=== PATIENT | male | born 1960 | race Caucasian/White ===

== ENCOUNTER 2020-09-15 06:00 | Observation (INO) | payer BC ==
[2020-09-13 13:09] LABS: BASOPHILS % (AUTO) 0.5 % (0.0-5.0); EOSINOPHILS % (AUTO) 0.9 % (0.0-8.0); HEMATOCRIT 51.5 % (42-54); LYMPHOCYTES % (AUTO) 14.5 % (21.0-51.0); MEAN CORPUSCULAR HEMOGLOBIN 30.1 pg (27.0-33.0); MEAN CORPUSCULAR HGB CONC 33.6 g/dL (32.0-36.0); MEAN CORPUSCULAR VOLUME 89.6 fL (79-99); MONOCYTES % (AUTO) 10.6 % (3.0-13.0); NEUTROPHILS % (AUTO) 73.3 % (40.0-77.0); PLATELET COUNT (AUTO) 226 K/uL (130-400); RED BLOOD CELL COUNT(AUTO) 5.75 MIL/uL (4.50-6.20); WHITE BLOOD COUNT (AUTO) 5.6 K/uL (4.8-10.8)
[2020-09-13 13:16] LABS: BILIRUBIN,URINE Negative (NEGATIVE); GLUCOSE, URINE (UA) Negative (NEGATIVE); KETONES,URINE Negative (NEGATIVE); LEUKOCYTE ESTERASE ,URINE Negative (NEGATIVE); NITRATE,URINE Negative (NEGATIVE); OCCULT BLOOD,URINE Negative (NEGATIVE); PH,URINE 7.5 (5.0-8.0); PROTEIN,URINE Negative (NEGATIVE); UROBILINOGEN,URINE 0.2 mg/dL (0.2-1.0)
[2020-09-13 13:22] LABS: APPEARANCE,URINE CLEAR (CLEAR); COLOR,URINE YELLOW (YELLOW)
[2020-09-13 13:28] LABS: INR 1.09 (0.85-1.15); PARTIAL THROMBOPLASTIN TIME 29.5 SEC (26.3-35.5); PROTHROMBIN TIME 11.7 SEC (9.6-11.6)
[2020-09-13 13:32] LABS: POTASSIUM 4.7 mmol/L (3.5-5.1)
[~2020-09-15] VITALS: Ht 198.1 cm; Wt 99.8 kg
[2020-09-15] VITALS (14 sets, daily range): BP systolic 120–141; BP diastolic 77–90
[~2020-09-15 06:00] MED LIST: ACETAMINOPHEN 325 MG TAB PO PRN; ASPI-891 PO; BUPR-317 PO; FLUO20CA35 PO; ROSU20TA31 PO; SODIUM CHLORIDE 0.9% 500ML 500 ML IV SCH
[2020-09-15] MEDS ORDERED: SODIUM CHLORIDE 0.9% 1000ML 1,000 ML IV ONE (06:12)
--- NOTE | 2020-09-15 06:15 | NUR ---
PREOP PT ARRIVED AMBULATORY IN NO DISTRESS. PT ORIENTED TO ROOM AND CALL LIGHT. FRIEND WITH PT. PT CONNECTED TO DOCTOR OF OPTOMETRY. WILL CONTINUE TO MONITOR PT
[2020-09-15] MEDS ORDERED: HEPARIN SODIUM 1000UNIT/ML 10ML VIAL ONE ×2 (07:12→08:48)
[2020-09-15] MEDS ORDERED: NITROGLYCERIN 2 MG/VIAL VIAL IV ONE (07:12)
[2020-09-15] MEDS ORDERED: SODIUM BICARB 50MEQ 50ML VIAL 50 ML ONE (07:12)
[2020-09-15] MEDS ORDERED: LIDOCAINE HCL 2% 20ML ONE (07:13)
[2020-09-15] MEDS ORDERED: IOHEXOL-350 75 ML VIAL IV ONE ×2 (07:13→08:35)
[2020-09-15] MEDS ORDERED: MEPERIDINE-PF 25 MG/ML SYG ONE ×3 (07:13→08:54)
[2020-09-15] MEDS ORDERED: MIDAZOLAM HCL 1 MG/ML 2ML VIAL ONE ×3 (07:13→08:54)
[2020-09-15] MEDS ORDERED: ONDANSETRON HCL 4 MG/2 ML VIAL ONE (07:34)
[2020-09-15] MEDS ORDERED: CLOPIDOGREL BISULFATE 300 MG TAB ONE (09:14)
[2020-09-15] MEDS ORDERED: ASPIRIN 325MG EC TAB 325 MG TABLET.DR PO ONE (09:14)
[2020-09-15] MEDS ORDERED: ONDANSETRON HCL 4 MG/2 ML VIAL IVP PRN (09:30)
[2020-09-15] MEDS ORDERED: ACETAMINOPHEN-CODEINE 300/30MG TAB PO PRN ×2 (09:30)
[2020-09-15] MEDS: SODIUM CHLORIDE 0.9% 1000ML 1,000 ML IV SCH ×2 (09:30→20:38)
[2020-09-15] MEDS ORDERED: TEMAZEPAM 30 MG CAP PO PRN (09:30)
--- NOTE | 2020-09-15 09:55 | NUR ---
md dr stokes in to speak to friend.
--- NOTE | 2020-09-15 10:00 | NUR ---
post cath received pt and report post cath from lyndon adams rn. pt in supine position in no distress. will continue to monitor pt.
--- NOTE | 2020-09-15 10:09 | NUR ---
[facility] pt taken to [facility] via bed in no distress by lyndon adams rn Addendum: 09/15/20 at 1011 by OLIVIA MUNSON RN RN wrong patient
--- NOTE | 2020-09-15 10:50 | NUR ---
hospitalist dr almeida notified of admission.
--- NOTE | 2020-09-15 11:30 | NUR ---
hospitalist nurse practitioner came in to see pt. she will renew home medications
--- NOTE | 2020-09-15 14:54 | NUR ---
report report given to shilpa nagy rn for continuation of care
--- NOTE | 2020-09-15 16:50 | NUR ---
DR DONALD ROUNDS AT BEDSIDE. HAND OFF REPORT GIVEN TO JESSEE ROSEN. PENDING TRANSFER TO ROOM 409
--- NOTE | 2020-09-15 17:30 | NUR ---
TRANSFERRED TO ROOM 409. CARE ASSUMED BY ZOIE ROSEN. PT STABLE IN NO DISTRESS
--- NOTE | 2020-09-15 18:37 | NUR ---
TRANSFERRED PT ARRIVE. AAO X3 NO COMPLICATIONS, NO BLEEDING FROM SITE OF PROCEDURE. COOPERAGES, WAS GIVEN ORIENTATION AND EDUCATED ABOUT THE UNIT. VERBALIZED UNDERSTAND. CONECTED TO NS @ 100 ML/HR.
[2020-09-15] MEDS ORDERED: ATORVASTATIN CALCIUM 40 MG TABLET PO SCH (21:00)
[2020-09-16 03:39] VITALS: BP 134/86
[2020-09-16] MEDS: SODIUM CHLORIDE 0.9% 1000ML 1,000 ML IV SCH (05:30)
[2020-09-16 06:09] LABS: HEMATOCRIT 49.4 % (42-54); MEAN CORPUSCULAR HEMOGLOBIN 30.4 pg (27.0-33.0); MEAN CORPUSCULAR HGB CONC 33.6 g/dL (32.0-36.0); MEAN CORPUSCULAR VOLUME 90.5 fL (79-99); RED BLOOD CELL COUNT(AUTO) 5.46 MIL/uL (4.50-6.20); WHITE BLOOD COUNT (AUTO) 6.5 K/uL (4.8-10.8)
[2020-09-16 06:27] LABS: POTASSIUM 4.5 mmol/L (3.5-5.1)
[2020-09-16] MEDS ORDERED: ASPIRIN 81MG TAB.CHEW PO SCH (09:00)
[2020-09-16] MEDS ORDERED: FLUOXETINE HCL 20 MG CAPSULE PO SCH (09:00)
[2020-09-16] MEDS ORDERED: BUPROPION HCL 150 MG TABLET.SA PO SCH (09:00)
[2020-09-16] MEDS ORDERED: CLOPIDOGREL BISULFATE 75 MG TAB PO SCH (09:00)
--- NOTE | 2020-09-16 15:36 | NUR ---
AFTER EVALUATION PER CARDIOLOGY STAND POINT PT IS CLEAR.
[2020-09-16] MEDS ORDERED: CLOP75TA14 PO (16:35)
[2020-09-16] MEDS ORDERED: ASPI-1005 PO (16:35)
== END 2020-09-16 17:00 | disposition home or self-care (01) ==
LOC: DAH 06:00 → DAHIP 06:01 → DAH 06:01 → 4BH 17:30
PROVIDERS: ADMIT Internal Medicine; ATTEND Internal Medicine
DX: I25.10 Atherosclerotic heart disease of native coronary artery without angina pectoris (principal); E78.00 Pure hypercholesterolemia, unspecified; F32.9 Major depressive disorder, single episode, unspecified; Z90.89 Acquired absence of other organs; E78.5 Hyperlipidemia, unspecified; E87.70 Fluid overload, unspecified; F42.9 Obsessive-compulsive disorder, unspecified
CPT/HCPCS: 36415 ×2; 71045; 80048 ×2; 81003; 85025; 85027; 85610; 85730; 93005; 93458; 96360; 96361 ×2; A4215; A4216; A4221; A4222; A4223 ×3; A4606; A4663; C1725 ×3; C1760; C1769 ×3; C1874; C1887 ×3; C1894; C9600; G0378 ×19; J1644 ×3; J2175 ×3; J2250 ×3; J2405; J3490 ×3; J7030 ×3; Q9967 ×2; 99156; 99157

== ENCOUNTER → 2023-09-30 | Outpatient (CLI) | payer BC ==
[~2023-09-30] MED LIST changes: -ACETAMINOPHEN 325 MG TAB PO PRN; +ASPI-1005 PO; -ASPI-891 PO; +CLOP-31 PO; -FLUO20CA35 PO; +FLUO20CA36 PO; -ROSU20TA31 PO; +ROSU20TA73 PO; -SODIUM CHLORIDE 0.9% 500ML 500 ML IV SCH
== END | disposition home or self-care (01) ==
LOC: RAH 12:58
PROVIDERS: ATTEND Internal Medicine Cardiovascular Disease
DX: K44.9 Diaphragmatic hernia without obstruction or gangrene (principal); K76.0 Fatty (change of) liver, not elsewhere classified; I25.10 Atherosclerotic heart disease of native coronary artery without angina pectoris; R91.8 Other nonspecific abnormal finding of lung field; M47.815 Spondylosis without myelopathy or radiculopathy, thoracolumbar region; Z91.81 History of falling
CPT/HCPCS: 71250

== ENCOUNTER → 2023-09-30 | Outpatient (CLI) | payer BC ==
[2023-09-30 16:25] LABS: BASOPHILS # (AUTO) 0.04 K/uL (0.00-0.20); BASOPHILS % (AUTO) 0.7 % (0.0-5.0); EOSINOPHILS # (AUTO) 0.15 K/uL (0.00-0.70); EOSINOPHILS % (AUTO) 2.5 % (0.0-8.0); HEMATOCRIT 47.6 % (42-54); IMMATURE GRANULOCYTE ABSOLUTE 0.01 K/uL (0-1); LYMPHOCYTES # (AUTO) 1.4 K/uL (1.0-4.8); LYMPHOCYTES % (AUTO) 23.1 % (21.0-51.0); MEAN CORPUSCULAR HEMOGLOBIN 32.1 pg (27.0-33.0); MEAN CORPUSCULAR HGB CONC 33.8 g/dL (32.0-36.0); MEAN CORPUSCULAR VOLUME 94.8 fL (79-99); MONOCYTES # (AUTO) 0.6 K/uL (0.1-1.0); MONOCYTES % (AUTO) 10.1 % (3.0-13.0); NEUTROPHILS # (AUTO) 3.8 K/uL (1.8-7.7); NEUTROPHILS % (AUTO) 63.4 % (40.0-77.0); PLATELET COUNT (AUTO) 210 K/uL (130-400); RED BLOOD CELL COUNT(AUTO) 5.02 MIL/uL (4.50-6.20); RED CELL DISTRIBUTION WIDTH 13.2 % (11.0-15.5); WHITE BLOOD COUNT (AUTO) 5.9 K/uL (4.8-10.8)
[2023-09-30 16:50] LABS: ALBUMIN 3.5 g/dL (3.5-5.0); BILIRUBIN,TOTAL 0.8 mg/dL (0.2-1.0); POTASSIUM 4.1 mmol/L (3.5-5.1); T4 (THYROXINE) 8.2 ug/dL (4.7-13.3); THYROID STIMULATING HORMONE 1.37 uIU/mL (0.36-3.74); TOTAL PROTEIN, SERUM 6.4 g/dL (6.0-8.3)
[2023-09-30 17:00] LABS: HEMOGLOBIN A1C 5.8 % (4.0-6.0)
== END | disposition home or self-care (01) ==
LOC: LAB 11:31
PROVIDERS: ATTEND Internal Medicine Cardiovascular Disease
DX: E78.5 Hyperlipidemia, unspecified (principal)
CPT/HCPCS: 36415; 80053; 80061; 83036; 83880; 84436; 84443; 84479; 85025

== ENCOUNTER → 2023-10-21 | Outpatient (CLI) | payer BC ==
[~2023-10-21] MED LIST changes: +REGADENOSON 0.4 MG/5 ML PF SYG IVP ONE
== END | disposition home or self-care (01) ==
LOC: SHCH 07:43
PROVIDERS: ATTEND Internal Medicine Cardiovascular Disease
DX: I25.10 Atherosclerotic heart disease of native coronary artery without angina pectoris (principal)
CPT/HCPCS: 78452; 93017; J2785; A9500 ×2; 96374

== ENCOUNTER → 2023-12-06 | Outpatient (CLI) | payer BC ==
[~2023-12-06] MED LIST changes: -REGADENOSON 0.4 MG/5 ML PF SYG IVP ONE
== END | disposition home or self-care (01) ==
LOC: SHCH 13:06
PROVIDERS: ATTEND Internal Medicine Cardiovascular Disease
DX: I37.1 Nonrheumatic pulmonary valve insufficiency (principal); I51.7 Cardiomegaly
CPT/HCPCS: 93306

== ENCOUNTER 2024-02-18 08:17 | Day surgery (SDC) | payer BC ==
[2024-02-16 10:27] VITALS: BP 142/93; PULSE 49; RESP 19
[2024-02-16 10:30] LABS: BASOPHILS # (AUTO) 0.04 K/uL (0.00-0.20); BASOPHILS % (AUTO) 0.6 % (0.0-5.0); EOSINOPHILS # (AUTO) 0.11 K/uL (0.00-0.70); EOSINOPHILS % (AUTO) 1.8 % (0.0-8.0); HEMATOCRIT 52.6 % (42-54); IMMATURE GRANULOCYTE ABSOLUTE 0.02 K/uL (0-1); LYMPHOCYTES # (AUTO) 1.6 K/uL (1.0-4.8); LYMPHOCYTES % (AUTO) 25.3 % (21.0-51.0); MEAN CORPUSCULAR HEMOGLOBIN 31.9 pg (27.0-33.0); MEAN CORPUSCULAR HGB CONC 33.8 g/dL (32.0-36.0); MEAN CORPUSCULAR VOLUME 94.3 fL (79-99); MONOCYTES # (AUTO) 0.7 K/uL (0.1-1.0); MONOCYTES % (AUTO) 10.5 % (3.0-13.0); NEUTROPHILS # (AUTO) 3.8 K/uL (1.8-7.7); NEUTROPHILS % (AUTO) 61.5 % (40.0-77.0); PLATELET COUNT (AUTO) 229 K/uL (130-400); RED BLOOD CELL COUNT(AUTO) 5.58 MIL/uL (4.50-6.20); RED CELL DISTRIBUTION WIDTH 12.1 % (11.0-15.5); WHITE BLOOD COUNT (AUTO) 6.2 K/uL (4.8-10.8)
[2024-02-16 10:35] LABS: POTASSIUM 4.4 mmol/L (3.5-5.1)
[2024-02-16 10:37] LABS: INR 0.97 (0.85-1.15); PROTHROMBIN TIME 11.5 SEC (9.6-11.6)
[2024-02-16 10:38] LABS: PARTIAL THROMBOPLASTIN TIME 31.9 SEC (26.3-35.5)
[2024-02-16 10:43] LABS: APPEARANCE,URINE CLEAR (CLEAR); BILIRUBIN,URINE NEGATIVE (NEGATIVE); COLOR,URINE LIGHT-YELLOW (YELLOW); GLUCOSE, URINE (UA) NEGATIVE (NEGATIVE); KETONES,URINE NEGATIVE (NEGATIVE); LEUKOCYTE ESTERASE ,URINE NEGATIVE Leu/uL (NEGATIVE); NITRATE,URINE NEGATIVE (NEGATIVE); OCCULT BLOOD,URINE NEGATIVE (NEGATIVE); PH,URINE 7.5 (5.0-8.0); PROTEIN,URINE NEGATIVE (NEGATIVE); UROBILINOGEN,URINE 0.2 mg/dL (0.2-1.0)
[2024-02-16 10:46] LABS: ADD UA MICROSCOPIC NO
[2024-02-16 11:05] LABS: B-TYPE NATRIURETIC PEPTIDE 31 pg/mL (0-100)
[~2024-02-18] VITALS: Ht 198.1 cm; Wt 110.1 kg
[2024-02-18] VITALS (9 sets, daily range): BP systolic 115–132; BP diastolic 79–88; PULSE 57–64; RESP 9–19
[~2024-02-18 08:17] MED LIST changes: +ALBU6.7H14 IH; -ASPI-1005 PO; +FURO20TA4 PO; +PROP60CA2 PO; +SACU1TAB7 PO; +TADA5TAB PO; +TAMS-1 PO; +VALS320T16 PO
[2024-02-18] MEDS: 0.9%NACL 1000ML 1,000 ML IV ONE (08:56)
[2024-02-18] MEDS ORDERED: MEPERIDINE-PF 25 MG/ML SYG ONE ×2 (10:37→11:19)
[2024-02-18] MEDS ORDERED: IOHEXOL 350 MG/ML 100ML INFUS..BTL IV ONE (10:37)
[2024-02-18] MEDS ORDERED: SODIUM BICARB 50MEQ 50ML VIAL 50 ML ONE (10:37)
[2024-02-18] MEDS ORDERED: LIDOCAINE HCL 400MG/20ML VIAL ONE (10:37)
[2024-02-18] MEDS ORDERED: MIDAZOLAM HCL 1 MG/ML 2ML VIAL ONE ×2 (10:37→11:19)
[2024-02-18] MEDS ORDERED: HEPARIN 10,000 UNIT/10ML (1,000 UNIT/ML) VIAL ONE (10:38)
[2024-02-18] MEDS ORDERED: NITROGLYCERIN 50MG VIAL ONE (10:55)
[2024-02-18] MEDS ORDERED: NICARDIPINE 25MG INJ IV ONE (10:55)
[2024-02-18] MEDS ORDERED: CLOPIDOGREL 300MG TAB ONE (12:03)
[2024-02-18] MEDS ORDERED: ASPIRIN 325MG EC TAB PO ONE (12:03)
[2024-02-18] MEDS: 0.9%NACL 1000ML 1,000 ML IV SCH (14:27)
== END 2024-02-18 16:20 | disposition home or self-care (01) ==
LOC: DAH 08:17
PROVIDERS: ATTEND Internal Medicine Cardiovascular Disease
DX: I25.119 Atherosclerotic heart disease of native coronary artery with unspecified angina pectoris (principal); I25.82 Chronic total occlusion of coronary artery; I50.32 Chronic diastolic (congestive) heart failure; F32.A Depression, unspecified; E78.5 Hyperlipidemia, unspecified; Z79.899 Other long term (current) drug therapy; Z79.01 Long term (current) use of anticoagulants; Z95.5 Presence of coronary angioplasty implant and graft; Z98.890 Other specified postprocedural states; Z90.89 Acquired absence of other organs; Z82.49 Family history of ischemic heart disease and other diseases of the circulatory system
CPT/HCPCS: 80048; 83880; 85025; 85610; 85730; 81003; 36415 ×2; 71045; 93005; 85347; 93458; C9600; C1769 ×3; C1887 ×2; C1874; A4649; C1894; J3490 ×4; J7030 ×2; J1644 ×2; J2250 ×2; J2175 ×2; Q9967; A4215; A4222; A6260; A4221; A4663; A4216; A6206; A4606; Q9965; A4223 ×3; 96360; 96361; 99156; 99157